=== PATIENT | male | born 1990 | race Caucasian/White ===

== ENCOUNTER 2020-05-20 15:31 | Outpatient (REF) | payer MEDICAID, SELFPAY | END 2020-05-20 15:32 | disposition home or self-care (01) | LOC: HO.LAB 15:31 | PROVIDERS: Visit Provider Internal Medicine | DX: Z20.828 Contact with and (suspected) exposure to other viral communicable diseases (principal) | CPT/HCPCS: C9803; U0003 ==

== ENCOUNTER 2020-07-21 12:11 | Outpatient (REF) | payer MEDICAID, SELFPAY | END 2020-07-21 12:12 | disposition home or self-care (01) | LOC: HO.LAB 12:11 | PROVIDERS: Visit Provider Internal Medicine | DX: Z20.822 Contact with and (suspected) exposure to COVID-19 (principal) | CPT/HCPCS: 36415; C9803; U0003 ==

== ENCOUNTER 2020-11-21 14:33 | Emergency (ER) | payer MEDICAID, SELFPAY ==
--- NOTE | ~2020-11-21 | XR_ITS ---
EXAMINATION: XR CHEST CLINICAL INFORMATION: Chest pain COMPARISON: 03/12/2020 TECHNIQUE: AP view of the chest was obtained. FINDINGS: No significant abnormality is noted involving the heart, lungs, mediastinum, bony thorax or soft tissues. XR/XR chest 1V IMPRESSION: Normal examination.
[2020-11-21 15:42] VITALS: BP 128/90; PULSE 78; RESP 18; TEMP 37.2; O2SAT 99; BMI 31.0
--- NOTE | 2020-11-21 15:42 | ED_ITS ---
HPI - Chest Pain General Chief Complaint: Chest Pain <ANABELA Lee - Last Filed: 11/21/20 15:49> Stated Complaint: pain on chest <ANABELA Lee - Last Filed: 11/21/20 15:49> Time Seen by Provider: 11/21/20 15:42 <ANABELA Lee - Last Filed: 11/21/20 15:49> Source: patient <Mary Mcgraw DO - Last Filed: 11/21/20 18:39> Mode of arrival: ambulatory <Mary Mcgraw DO - Last Filed: 11/21/20 18:39> Limitations: no limitations <Mary Mcgraw DO - Last Filed: 11/21/20 18:39> History of Present Illness MD complaint: chest pain <Mary Mcgraw DO - Last Filed: 11/21/20 18:39> Onset (ago): day(s) (2) <Mary Mcgraw DO - Last Filed: 11/21/20 18:39> Onset: during rest <Mary Mcgraw DO - Last Filed: 11/21/20 18:39> Pain location: substernal <Mary Mcgraw DO - Last Filed: 11/21/20 18:39> Pain radiation: none <Mary Mcgraw DO - Last Filed: 11/21/20 18:39> Severity: moderate <Mary Mcgraw DO - Last Filed: 11/21/20 18:39> Quality: burning <Mary Mcgraw DO - Last Filed: 11/21/20 18:39> Relieving factors: nothing <Mary Mcgraw DO - Last Filed: 11/21/20 18:39> Exacerbating factors: eating <Mary Mcgraw DO - Last Filed: 11/21/20 18:39> Treatment prior to arrival: other (tried tums without relief) <Mary Mcgraw DO - Last Filed: 11/21/20 18:39> Related Data Home Medications: Previous Rx's Medication Instructions Recorded omeprazole 40 mg PO DAILY #20 cap 11/21/20 valacyclovir 500 mg PO Q12H 3 Days #6 tab 11/21/20 <ANABELA Lee - Last Filed: 11/21/20 15:49> Allergies/Adverse Reactions: Allergies Allergy/AdvReac Type Severity Reaction Status Date / Time No Known Allergies Allergy Verified 11/21/20 15:42 <ANABELA Lee - Last Filed: 11/21/20 15:49> Review of Systems Review of Systems: Constitutional : No Weight loss, No Fever, No Chills ENT/Mouth : No sore throat, No Rhinorrhea Eyes: No Eye Pain, No Swelling Cardiovascular : pos Chest Pain, no SOB, no Dyspnea on Exertion, No Orthopnea, No Edema, No Palpitations Respiratory : No Cough, No Sputum Gastrointestinal : no Nausea, No Vomiting, No Diarrhea, No abdominal Pain, No Hematochezia, No Melena Genitourinary : No Dysuria, No Urinary Frequency Musculoskeletal : No joint pain, No Myalgias, No Joint Swelling Skin : No Skin Lesions, No rash Neuro : No Weakness, No Numbness, No Dizziness, No Headache Psych : No Anxiety/Panic, No Depression Heme/Lymph: No Bruising, No Lymphadenopathy Endocrine : No Polyuria, No Polydipsia All other systems reviewed and are negative <Mary Mcgraw DO - Last Filed: 11/21/20 18:39> PMF Past Medical History Attestation statement: The following information was validated with the patient. <Mary Mcgraw DO - Last Filed: 11/21/20 18:39> Medical History: Medical History Biliary colic Heart murmur <ANABELA Lee - Last Filed: 11/21/20 15:49> Social History Social History: Social History (Updated 11/21/20 @ 17:40 by Mary Mcgraw DO) Smoking Status: Never smoker Use of substances other than those prescribed or required for medical reasons: No Advance Directives: No Advance Directives Information Provided: Yes <ANABELA Lee - Last Filed: 11/21/20 15:49> Physical Exam Vital Signs: Vital Signs: Last Vital Signs Temp 98.9 F 11/21/20 15:42 Pulse 78 11/21/20 15:42 Resp 18 11/21/20 15:42 BP 128/90 H 11/21/20 15:42 Pulse Ox 99 11/21/20 15:42 Body Mass Index 31.0 <ANABELA Lee - Last Filed: 11/21/20 15:49> Vital Signs: Last Vital Signs Temp 98.9 F 11/21/20 15:42 Pulse 78 11/21/20 15:42 Resp 18 11/21/20 15:42 BP 128/90 H 11/21/20 15:42 Pulse Ox 99 11/21/20 15:42 Body Mass Index 31.0 <Mary Mcgraw DO - Last Filed: 11/21/20 18:39> Appearance: Alert. Oriented X3. No acute distress. Eyes: Pupils equal, round and reactive to light. ENT: Pharynx normal. Neck: Normal inspection. Neck supple. CVS: Normal heart rate and rhythm. Pulses normal. Respiratory: No respiratory distress. Breath sounds normal. Abdomen: Soft and nontender. Skin: Skin warm and dry. Normal skin color. Normal skin turgor. Extremities: No lower extremity edema. No calf ttp Neuro: Oriented X 3. No motor deficit. No sensory deficit. <Mary Mcgraw DO - Last Filed: 11/21/20 18:39> Course Course Course Narrative: Rapid medical examination: 30 y/o male with history of heart murmur as a child, gallbladder issues in the past presenting with intermittent chest pain for the last 3 days. Points to epigastric area. Radiates to RUQ and central abdomen. No relief with heartburn meds. Will get basic labs, CXR and EKG. Doubt cardiac etiology. Plan per Main ED provider. <ANABELA Lee - Last Filed: 11/21/20 15:49> MDM - Chest Pain MDM Narrative Medical decision making narrative: 30 yo male with burning chest pain x 2 days negative EKG, PERC negative, troponin negative symptoms concerning for GERD will start on PPI and refer to PCP, discussed life changes to make to help as well <Mary Mcgraw DO - Last Filed: 11/21/20 18:39> Lab Data Result diagrams: : 11/21/20 16:41 11/21/20 16:41 <ANABELA Lee - Last Filed: 11/21/20 15:49> Labs: Lab Results 11/21/20 11/21/20 11/21/20 Range/Units 16:41 16:41 16:41 WBC 8.5 (4.8-10.8) X10*3/uL RBC 5.10 (4.60-5.80) X10*6/uL Hgb 14.9 (14.0-18.0) g/dl Hct 43.2 (42-52) % MCV 84.7 (80-98) fL MCH 29.2 (27.0-33.0) pg MCHC 34.5 (31.0-36.0) g/dl RDW 13.5 (11.0-16.0) % Plt Count 265 (160-400) X10*3/uL MPV 10.3 (9.4-12.4) fL Immature Gran % (Auto) 0.4 (0.0-0.4) % Neut % (Auto) 67.5 (45-73) % Lymph % (Auto) 23.5 (20-40) % [place] % (Auto) 6.7 (2-11) % Eos % (Auto) 1.2 (0-4) % Baso % (Auto) 0.7 (0-2) % Lymph # (Auto) 2.0 (1.2-4.9) X10*3/uL [place] # (Auto) 0.6 (0.1-1.2) X10*3/uL Eos # (Auto) 0.1 (0.0-0.4) X10*3/uL Baso # (Auto) 0.1 (0.0-0.2) X10*3/uL Abs Immat Gran (auto) 0.03 (0.00-0.03) X10*3/uL Absolute Neuts (auto) 5.8 (2.0-8.3) X10*3/uL Absolute Nucleated RBC 0.000 (0.0-0.012) X10*3/uL Nucleated RBC % (auto) 0.0 (0.0-0.2) /100WBC Hold Blue Top SEE NOTE Sodium 138 (135-145) mmol/L Potassium 3.9 (3.3-5.1) mmol/L Chloride 109 H (96-108) mmol/L Carbon Dioxide 21 L (22-29) mmol/L Anion Gap 12 (12-20) BUN 12 (9-16) mg/dL Creatinine 0.94 (0.5-1.4) mg/dL Estim Creat Clear Calc 111.1 Estimated GFR > 60 Random Glucose 120 H (60-115) mg/dL Calcium 9.1 (8.4-10.2) mg/dL Total Bilirubin 0.8 (0.0-1.0) mg/dL Direct Bilirubin 0.2 (0.0-0.5) mg/dL AST 17 (5-37) U/L ALT 25 (0-40) U/L Alkaline Phosphatase 53 (39-117) U/L Troponin I High Sens (<3.5-35.0) ng/L Total Protein 6.7 (6.5-8.0) g/dL Albumin 4.4 (3.5-5.0) g/dL Lipase 37 (8-78) U/L 11/21/20 Range/Units 16:41 WBC (4.8-10.8) X10*3/uL RBC (4.60-5.80) X10*6/uL Hgb (14.0-18.0) g/dl Hct (42-52) % MCV (80-98) fL MCH (27.0-33.0) pg MCHC (31.0-36.0) g/dl RDW (11.0-16.0) % Plt Count (160-400) X10*3/uL MPV (9.4-12.4) fL Immature Gran % (Auto) (0.0-0.4) % Neut % (Auto) (45-73) % Lymph % (Auto) (20-40) % [place] % (Auto) (2-11) % Eos % (Auto) (0-4) % Baso % (Auto) (0-2) % Lymph # (Auto) (1.2-4.9) X10*3/uL [place] # (Auto) (0.1-1.2) X10*3/uL Eos # (Auto) (0.0-0.4) X10*3/uL Baso # (Auto) (0.0-0.2) X10*3/uL Abs Immat Gran (auto) (0.00-0.03) X10*3/uL Absolute Neuts (auto) (2.0-8.3) X10*3/uL Absolute Nucleated RBC (0.0-0.012) X10*3/uL Nucleated RBC % (auto) (0.0-0.2) /100WBC Hold Blue Top Sodium (135-145) mmol/L Potassium (3.3-5.1) mmol/L Chloride (96-108) mmol/L Carbon Dioxide (22-29) mmol/L Anion Gap (12-20) BUN (9-16) mg/dL Creatinine (0.5-1.4) mg/dL Estim Creat Clear Calc Estimated GFR Random Glucose (60-115) mg/dL Calcium (8.4-10.2) mg/dL Total Bilirubin (0.0-1.0) mg/dL Direct Bilirubin (0.0-0.5) mg/dL AST (5-37) U/L ALT (0-40) U/L Alkaline Phosphatase (39-117) U/L Troponin I High Sens < 3.5 (<3.5-35.0) ng/L Total Protein (6.5-8.0) g/dL Albumin (3.5-5.0) g/dL Lipase (8-78) U/L <ANABELA Lee - Last Filed: 11/21/20 15:49> Lab Results 11/21/20 11/21/20 11/21/20 Range/Units 16:41 16:41 16:41 WBC 8.5 (4.8-10.8) X10*3/uL RBC 5.10 (4.60-5.80) X10*6/uL Hgb 14.9 (14.0-18.0) g/dl Hct 43.2 (42-52) % MCV 84.7 (80-98) fL MCH 29.2 (27.0-33.0) pg MCHC 34.5 (31.0-36.0) g/dl RDW 13.5 (11.0-16.0) % Plt Count 265 (160-400) X10*3/uL MPV 10.3 (9.4-12.4) fL Immature Gran % (Auto) 0.4 (0.0-0.4) % Neut % (Auto) 67.5 (45-73) % Lymph % (Auto) 23.5 (20-40) % [place] % (Auto) 6.7 (2-11) % Eos % (Auto) 1.2 (0-4) % Baso % (Auto) 0.7 (0-2) % Lymph # (Auto) 2.0 (1.2-4.9) X10*3/uL [place] # (Auto) 0.6 (0.1-1.2) X10*3/uL Eos # (Auto) 0.1 (0.0-0.4) X10*3/uL Baso # (Auto) 0.1 (0.0-0.2) X10*3/uL Abs Immat Gran (auto) 0.03 (0.00-0.03) X10*3/uL Absolute Neuts (auto) 5.8 (2.0-8.3) X10*3/uL Absolute Nucleated RBC 0.000 (0.0-0.012) X10*3/uL Nucleated RBC % (auto) 0.0 (0.0-0.2) /100WBC Hold Blue Top SEE NOTE Sodium 138 (135-145) mmol/L Potassium 3.9 (3.3-5.1) mmol/L Chloride 109 H (96-108) mmol/L Carbon Dioxide 21 L (22-29) mmol/L Anion Gap 12 (12-20) BUN 12 (9-16) mg/dL Creatinine 0.94 (0.5-1.4) mg/dL Estim Creat Clear Calc 111.1 Estimated GFR > 60 Random Glucose 120 H (60-115) mg/dL Calcium 9.1 (8.4-10.2) mg/dL Total Bilirubin 0.8 (0.0-1.0) mg/dL Direct Bilirubin 0.2 (0.0-0.5) mg/dL AST 17 (5-37) U/L ALT 25 (0-40) U/L Alkaline Phosphatase 53 (39-117) U/L Troponin I High Sens (<3.5-35.0) ng/L Total Protein 6.7 (6.5-8.0) g/dL Albumin 4.4 (3.5-5.0) g/dL Lipase 37 (8-78) U/L //21 Range/Units 16:41 WBC (4.8-10.8) X10*3/uL RBC (4.60-5.80) X10*6/uL Hgb (14.0-18.0) g/dl Hct (42-52) % MCV (80-98) fL MCH (27.0-33.0) pg MCHC (31.0-36.0) g/dl RDW (11.0-16.0) % Plt Count (160-400) X10*3/uL MPV (9.4-12.4) fL Immature Gran % (Auto) (0.0-0.4) % Neut % (Auto) (45-73) % Lymph % (Auto) (20-40) % [place] % (Auto) (2-11) % Eos % (Auto) (0-4) % Baso % (Auto) (0-2) % Lymph # (Auto) (1.2-4.9) X10*3/uL [place] # (Auto) (0.1-1.2) X10*3/uL Eos # (Auto) (0.0-0.4) X10*3/uL Baso # (Auto) (0.0-0.2) X10*3/uL Abs Immat Gran (auto) (0.00-0.03) X10*3/uL Absolute Neuts (auto) (2.0-8.3) X10*3/uL Absolute Nucleated RBC (0.0-0.012) X10*3/uL Nucleated RBC % (auto) (0.0-0.2) /100WBC Hold Blue Top Sodium (135-145) mmol/L Potassium (3.3-5.1) mmol/L Chloride (96-108) mmol/L Carbon Dioxide (22-29) mmol/L Anion Gap (12-20) BUN (9-16) mg/dL Creatinine (0.5-1.4) mg/dL Estim Creat Clear Calc Estimated GFR Random Glucose (60-115) mg/dL Calcium (8.4-10.2) mg/dL Total Bilirubin (0.0-1.0) mg/dL Direct Bilirubin (0.0-0.5) mg/dL AST (5-37) U/L ALT (0-40) U/L Alkaline Phosphatase (39-117) U/L Troponin I High Sens < 3.5 (<3.5-35.0) ng/L Total Protein (6.5-8.0) g/dL Albumin (3.5-5.0) g/dL Lipase (8-78) U/L <Mary Mcgraw DO - Last Filed: 11/21/20 18:39> ECG Data ECG #1: Attestation: I personally reviewed and interpreted this ECG as follows: <Mary Mcgraw DO - Last Filed: 11/21/20 18:39> ECG interpretation date: 11/21/20 <Mary Mcgraw DO - Last Filed: 11/21/20 18:39> ECG interpretation time: 17:33 <Mary Mcgraw DO - Last Filed: 11/21/20 18:39> Interpretation: Rate: 62 Rhythm: NSR [place]: normal Normal P waves. Normal LAST. Normal QRS complex. ST T wave : normal no ALYSSA qTC: normal prior studies: no acute ischemia The study has been interpreted contemporaneously by me. . <Mary Mcgraw DO - Last Filed: 11/21/20 18:39> Discharge Plan Discharge Clinical Impression: GERD with esophagitis Qualifiers: Esophagitis bleeding: without hemorrhage Qualified Code(s): K21.00 - Gastro- esophageal reflux disease with esophagitis, without bleeding <ANABELA Lee Last Filed: 11/21/20 15:49> Patient Disposition: Home, Self-Care <ANABELA Lee Last Filed: 11/21/20 15:49> Instructions: Diet for Stomach Ulcers and Gastritis (ED), Gastroesophageal Reflux Disease (ED) <ANABELA Lee Last Filed: 11/21/20 15:49> Additional Instructions: return to ED for any worsening symptoms or concerns <ANABELA Lee Last Filed: 11/21/20 15:49> Prescriptions: New omeprazole 40 mg capsule,delayed release(DR/EC) 40 mg PO DAILY Qty: 20 RF: 0 valacyclovir 500 mg tablet 500 mg PO Q12H 3 Days Qty: 6 RF: 3 <ANABELA Lee Last Filed: 11/21/20 15:49> Referrals: Physician,Unknown [Primary Care Provider] - 2 days (PCP if not better) <ANABELA eLe - Last Filed: 11/21/20 15:49> Interventions: ED Discharge Assessment Last Done: 11/21/20 18:18 <ANABELA Lee - Last Filed: 11/21/20 15:49> Discharge Date/Time: 11/21/20 18:18 <ANABELA Lee - Last Filed: 11/21/20 15:49>
--- NOTE | 2020-11-21 15:45 | ECG_ITS ---
Test Reason : CHEST PAIN Blood Pressure : / mmHG Vent. Rate : 062 BPM Atrial Rate : 062 BPM P-R Int : 158 ms QRS Dur : 092 ms QT Int : 376 ms P-R-T Axes : 000 046 010 degrees QTc Int : 381 ms Normal sinus rhythm Normal ECG When compared with ECG of 12-MAR-2020 03:14, No significant change was found Referred By: Blanka Ruiz Electronically Signed By:ODETTE MAX
[2020-11-21 16:46] LABS: MANUAL DIFF FLAG NO
[2020-11-21 16:47] LABS: Basophils Absolute Auto 0.1 X10*3/uL (0.0-0.2); Basophils Percent Auto 0.7 % (0-2); Eosinophils Absolute Auto 0.1 X10*3/uL (0.0-0.4); Eosinophils Percent Auto 1.2 % (0-4); Hematocrit 43.2 % (42-52); Hemoglobin 14.9 g/dl (14.0-18.0); Imm Gran Abs Auto 0.03 X10*3/uL (0.00-0.03); Imm Gran Pct Auto 0.4 % (0.0-0.4); Lymphocytes Percent Auto 23.5 % (20-40); Mean Corpuscular HGB Conc 34.5 g/dl (31.0-36.0); Mean Corpuscular Hemoglobin 29.2 pg (27.0-33.0); Mean Corpuscular Volume 84.7 fL (80-98); Mean Platelet Volume 10.3 fL (9.4-12.4); Monocytes Absolute Auto 0.6 X10*3/uL (0.1-1.2); Monocytes Percent Auto 6.7 % (2-11); Neutrophils Absolute Auto 5.8 X10*3/uL (2.0-8.3); Neutrophils Percent Auto 67.5 % (45-73); Platelet Count 265 X10*3/uL (160-400); Red Cell Distribution Width 13.5 % (11.0-16.0); White Blood Count 8.5 X10*3/uL (4.8-10.8)
[2020-11-21 17:05] LABS: Alanine Aminotransferase 25 U/L (0-40); Albumin Level 4.4 g/dL (3.5-5.0); Alkaline Phosphatase 53 U/L (39-117); Anion Gap 12 (12-20); Aspartate Amino Transferase 17 U/L (5-37); Bilirubin Direct 0.2 mg/dL (0.0-0.5); Bilirubin Total 0.8 mg/dL (0.0-1.0); Blood Urea Nitrogen 12 mg/dL (9-16); Calcium 9.1 mg/dL (8.4-10.2); Carbon Dioxide 21 mmol/L (22-29); Chloride 109 mmol/L (96-108); Creatinine Clr Calc Pharmacy 111.1; Estimated Glomerular Filt Rate > 60; Glucose Random 120 mg/dL (60-115); Lipase 37 U/L (8-78); Potassium 3.9 mmol/L (3.3-5.1); Sodium 138 mmol/L (135-145); Total Protein 6.7 g/dL (6.5-8.0)
[2020-11-21 17:19] LABS: Troponin-I High Sensitivity < 3.5 ng/L (<3.5-35.0)
[2020-11-21] MEDS: Lidocaine HCl Viscous 2 % 15 ML SOLUTION MUCOUS MEM (18:17)
[2020-11-21] MEDS: Magnesium Hydrox/Alum Hydrox 30 ML ORAL.SUSP PO (18:17)
[2020-11-21] MEDS: Omeprazole 40 MG CAPSULE.DR PO (18:18)
== END 2020-11-21 18:18 | disposition home or self-care (01) ==
LOC: HO.ED 17:52
PROVIDERS: Physician Assistant; Emergency Provider Emergency Medicine
DX: K21.00 Gastro-esophageal reflux disease with esophagitis, without bleeding (principal); R07.9 Chest pain, unspecified; Z79.899 Other long term (current) drug therapy
CPT/HCPCS: 36415; 71045; 80048; 80076; 83690; 84484; 85025; 93005; 99283

== ENCOUNTER 2020-11-22 17:42 | Emergency (ER) | payer MEDICAID, SELFPAY ==
[2020-11-22 17:47] VITALS: BP 131/90; PULSE 71; RESP 16; TEMP 35.9; O2SAT 98; BMI 31.0
== END 2020-11-22 20:26 | disposition left against medical advice (07) ==
PROVIDERS: Emergency Provider Emergency Medicine
DX: J02.9 Acute pharyngitis, unspecified (principal); K21.9 Gastro-esophageal reflux disease without esophagitis
CPT/HCPCS: 99281; 99282

== ENCOUNTER 2021-01-22 15:05 | Emergency (ER) | payer OTHER, MEDICAID, SELFPAY ==
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
[2021-01-22 15:16] VITALS: BP 121/80; PULSE 94; RESP 20; TEMP 36.1; O2SAT 98; BMI 29.6
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
== END 2021-01-22 17:23 | disposition home or self-care (01) ==
PROVIDERS: Emergency Provider Emergency Medicine
DX: S39.012A Strain of muscle, fascia and tendon of lower back, initial encounter (principal); V43.52XA Car driver injured in collision with other type car in traffic accident, initial encounter; Y93.89 Activity, other specified; Y92.414 Local residential or business street as the place of occurrence of the external cause; Y99.9 Unspecified external cause status
CPT/HCPCS: 71046; 99283

== ENCOUNTER 2021-01-26 15:38 | Emergency (ER) | payer OTHER, MEDICAID, SELFPAY ==
[2021-01-26 16:21] VITALS: BP 130/65; PULSE 83; RESP 18; TEMP 36.9; O2SAT 98; BMI 30.5
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
== END 2021-01-26 18:28 | disposition home or self-care (01) ==
PROVIDERS: Emergency Provider Emergency Medicine Emergency Medical Services
DX: S39.012A Strain of muscle, fascia and tendon of lower back, initial encounter (principal); V43.52XA Car driver injured in collision with other type car in traffic accident, initial encounter; Y93.89 Activity, other specified; Y92.414 Local residential or business street as the place of occurrence of the external cause; Y99.9 Unspecified external cause status
CPT/HCPCS: 99283